=== PATIENT | male | born 1945 | race Caucasian/White ===

== ENCOUNTER 2021-09-21 18:13 | Emergency (ER) | payer OTHER, MEDICAID ==
[~2021-09-21] VITALS: Ht 188 cm; Wt 88.9 kg
--- NOTE | 2021-09-21 18:15 | NUR ---
BIBA BLS TO ER BED 9
[2021-09-21 18:31] VITALS: BP 147/90
--- NOTE | 2021-09-21 18:40 | NUR ---
76 Y/O MALE BIBA FROM [facility] C/O BACK PAIN 05/14 DESRIBES ACHING NON-RADIATING S/P FALL X2DAYS FROM A CHAIR. PT DENIES FEVER/CHILLS. DENIES N/V/D. 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
--- NOTE | 2021-09-21 19:14 | NUR ---
GAVE REPORT TO BG PEARCE. TRANSFER OF CARE AT THIS TIME.
--- NOTE | 2021-09-21 20:13 | NUR ---
ASKED PATIENT FOR URINE SAMPLE. HE STATED THAT HE DOESNT KNOW WHEN HE HAS TO URINATE AND THAT HE GOES WHENEVER.
[2021-09-21 20:31] LABS: BASOPHILS % (AUTO) 0.6 % (0.0-2.0); EOSINOPHILS # (AUTO) 0.1 K/uL (0-0.4); EOSINOPHILS % (AUTO) 1.2 % (0.0-4.0); HEMATOCRIT 49.4 % (36-52); HEMOGLOBIN 16.7 g/dL (12.0-18.0); LYMPHOCYTES # (AUTO) 1.3 K/uL (2.0-11.5); LYMPHOCYTES % (AUTO) 18.2 % (20.5-51.1); MEAN CORPUSCULAR HEMOGLOBIN 31 pg (27-31); MEAN CORPUSCULAR HGB CONC 34 g/dL (33-37); MEAN CORPUSCULAR VOLUME 91.1 fL (80-94); MONOCYTES # (AUTO) 0.4 K/uL (0.8-1.0); NEUTROPHILS # (AUTO) 5.3 K/uL (1.8-7.7); PLATELET COUNT (AUTO) 157 K/uL (140-450); RED BLOOD CELL COUNT(AUTO) 5.42 MIL/uL (4.20-6.10); RED CELL DISTRIBUTION WIDTH 13.6 % (11.6-13.7); WHITE BLOOD COUNT (AUTO) 7.2 K/uL (4.8-10.8)
[2021-09-21 20:38] LABS: ANION GAP 11.4 (8-16); CHLORIDE 104 mmol/L (98-107); CREATININE 1.1 mg/dL (0.6-1.3); GLUCOSE 146 mg/dL (74-106); POTASSIUM 3.4 mmol/L (3.5-5.1); SODIUM SERUM 140 mmol/L (136-145); UREA NITROGEN, BLOOD 18 mg/dL (7-18)
--- NOTE | 2021-09-21 22:20 | NUR ---
PATIENT NO COMPLAINT OF PAIN. SITTING UPRIGHT WITH EYES OPEN. ALL NEEDS MET AT THIS TIME. WILL CONTINUE TO MONITOR.
[2021-09-21 23:36] LABS: APPEARANCE,URINE CLEAR (CLEAR); BILIRUBIN,URINE NEGATIVE (NEGATIVE); BLOOD, URINE NEGATIVE (NEGATIVE); COLOR,URINE YELLOW (YELLOW); LEUKOCYTE ESTERASE ,URINE NEGATIVE (NEGATIVE); NITRITE, URINE NEGATIVE (NEGATIVE); PH,URINE 5.5 (5.0-9.0); UGLUCOSE NEGATIVE (NEGATIVE)
--- NOTE | 2021-09-22 | NUR ---
NO CHANGES NOTED. PATIENT LAYING SUPINE COMFORTABLY ASLEEP. NEEDS MET, WILL CONTINUE TO MONITOR AT THIS TIME.
--- NOTE | 2021-09-22 03:15 | NUR ---
NO CHANGES NOTED. PATIENT LAYING SUPINE WITH EYES CLOSED, ASLEEP. CHEST RISE AND FALL NOTED. NEEDS MET, WILL CONTINUE TO MONITOR.
--- NOTE | 2021-09-22 05:06 | NUR ---
NO CHANGES NOTED. PATIENT LAYING SUPINE WITH EYES CLOSED, ASLEEP. CHEST RISE AND FALL NOTED. NEEDS MET, WILL CONTINUE TO MONITOR.
--- NOTE | 2021-09-22 07:15 | NUR ---
REPORT RECIEVED FROM GB GLYNN FOR CONTUNITY OF CARE
--- NOTE | 2021-09-22 07:15 | NUR ---
TRANSFER OF CARE TO BG BAKER. PATIENT STABLE.
--- NOTE | 2021-09-22 07:45 | NUR ---
PT PROVIDED WITH BREAKFAST TRAY
[2021-09-22] MEDS ORDERED: ACETAMINOPHEN EXTRA STRENGTH 500 MG TAB PO ONE (08:50)
--- NOTE | 2021-09-22 08:51 | NUR ---
PT REPOSITIONED FOR COMFORT AND PROVIDED WITH COFFEE AT THIS TIME
--- NOTE | 2021-09-22 09:40 | NUR ---
Patient appears to be resting comfortably in bed. Vital Signs within normal limits. Respirations even and unlabored.
--- NOTE | 2021-09-22 10:22 | NUR ---
REPORT CALLED TO MICAELA CARLOS AND SPOKE WITH BG KHOURY. PROVIDED REPORT TO [place] ON PATIENT STATUS AND PROVIDED WITH ETA FOR PATIENT DISCHARGE
[2021-09-22 10:53] VITALS: BP 132/81
--- NOTE | 2021-09-22 10:53 | NUR ---
Patient discharged with v/s stable. Written and verbal after care instructions given and explained. Patient verbalized understanding. Ambulance Transport with to [facility]. All questions addressed prior to discharge. Advised to follow up with PMD.
== END 2021-09-22 10:53 ==
LOC: MED 18:13
DX: S39.92XA Unspecified injury of lower back, initial encounter (principal); R53.1 Weakness; I10 Essential (primary) hypertension; E03.9 Hypothyroidism, unspecified; Z88.5 Allergy status to narcotic agent; Z88.8 Allergy status to other drugs, medicaments and biological substances; W19.XXXA Unspecified fall, initial encounter; Y93.89 Activity, other specified; Y92.89 Other specified places as the place of occurrence of the external cause; Y99.8 Other external cause status
CPT/HCPCS: 36415; 80048; 81003; 85025; 99285